=== PATIENT | female | born 1960 | race Caucasian/White ===

== ENCOUNTER 2018-11-16 09:33 | Emergency (ER) | payer OTHER ==
[2018-11-16 10:15] VITALS: BP 120/50
--- NOTE | 2018-11-16 10:34 | ED ---
Upper Extremity Pain - HPI Summary HPI Summary: 58 yr old female with pain in the left thumb. Onset of pain was several weeks ago. She has no idea the cause, and does not remember any specific accident or trauma. She has pain worse with motion of the left dorsal thumb worse when extending or abduction. The patient does not have bruising or swelling. Pain is moderate. - History of Current Complaint Chief Complaint: UCGeneralIllness Stated Complaint: LEFT THUMB PAIN Time Seen by Provider: 11/16/18 10:22 Hx Last Menstrual Period: hysterectomy - Allergies/Home Medications Allergies/Adverse Reactions: Allergies Allergy/AdvReac Type Severity Reaction Status Date / Time codeine Allergy Intermediate GI Upset Verified 11/16/18 10:16 Sulfa (Sulfonamide Allergy Intermediate Rash Verified 11/16/18 10:16 Antibiotics) Home Medications: Home Medications Atorvastatin* [Lipitor*] 20 mg PO 1700 11/16/18 [History Confirmed 11/16/18] PMH/Surg Hx/FS Hx/Imm Hx Endocrine/Hematology History: Denies: Hx Diabetes, Hx Thyroid Disease Cardiovascular History: Denies: Hx Hypertension, Hx Pacemaker/ICD Respiratory History: Denies: Hx Asthma, Hx Chronic Obstructive Pulmonary Disease (COPD) GI History: Denies: Hx Ulcer History: Denies: Hx Renal Disease Sensory History: Denies: Hx Hearing Aid Psychiatric History: Denies: Hx Panic Disorder - Cancer History Hx Chemotherapy: No Hx Radiation Therapy: No - Surgical History Surgery Procedure, Year, and Place: CSP FUSION 2000,LT SHOULDER,HYSTERECTOMY, SINUS,BREAST BIOPSY Xs - Lt BREAST Infectious Disease History: No Infectious Disease History: Denies: Hx Hepatitis, Hx Human Immunodeficiency Virus (HIV), Traveled Outside the [place] in Last 30 Days - Family History Known Family History: Positive: Cardiac Disease - Social History Alcohol Use: Weekly Substance Use Type: Reports: None Smoking Status (MU): Current Some Day Smoker Type: Cigarettes Amount Used/How Often: 1/2 -1 pack per week Length of Time of Smoking/Using Tobacco: 30 yrs Have You Smoked in the Last Year: Yes Review of Systems Constitutional: Negative Positive: Other - pain in the thumb All Other Systems Reviewed And Are Negative: Yes Physical Exam Triage Information Reviewed: Yes Vital Signs On Initial Exam: Initial Vitals Temp Pulse Resp BP Pulse Ox 98.0 F 61 16 120/50 100 11/16/18 10:12 11/16/18 10:12 11/16/18 10:12 11/16/18 10:12 11/16/18 10:12 Vital Signs Reviewed: Yes Appearance: Positive: Well-Appearing, No Pain Distress Skin: Positive: Warm, Skin Color Reflects Adequate Perfusion Head/Face: Positive: Normal Head/Face Inspection Eyes: Positive: EOMI ENT: Positive: Pharynx normal Neck: Positive: Nontender Respiratory/Lung Sounds: Positive: Other - normal effort Cardiovascular: Positive: Pulses are Symmetrical in both Upper and Lower Extremities Abdomen Description: Negative: Distended Musculoskeletal: Positive: Other - tender over the dorsal left thumb. No swelling, no bruise, no sts, no redness. Neurological: Positive: Sensory/Motor Intact, Alert, Oriented to Person Place, Time, CN Intact II-III Psychiatric: Positive: Normal Diagnostics - Vital Signs Vital Signs Temp Pulse Resp BP Pulse Ox 11/16/18 10:12 98.0 F 61 16 120/50 100 - Laboratory Lab Statement: Any lab studies that have been ordered have been reviewed, and results considered in the medical decision making process. Course/Dx - Course Course Of Treatment: 58 yr old female with no fx on xray. arthritis. FU with Ortho. - Diagnoses Provider Diagnoses: Thumb tendonitis, Arthritis Discharge - Sign-Out/Discharge Documenting (check all that apply): Patient Departure All imaging exams completed and their final reports reviewed: Yes - Discharge Plan Condition: Good Disposition: HOME Patient Education Materials: Tendinitis (ED), Arthritis (ED) Referrals: Patricia Alonso MD [Primary Care Provider] - 2 Days Wm Castellanos MD [Medical Doctor] - 2 Days - Billing Disposition and Condition Condition: GOOD Disposition: Home
== END 2018-11-16 11:21 | disposition home or self-care (01) ==
LOC: UCCORT 09:33
DX: M13.842 Other specified arthritis, left hand (principal); M77.9 Enthesopathy, unspecified; F17.210 Nicotine dependence, cigarettes, uncomplicated; Z88.5 Allergy status to narcotic agent; Z88.2 Allergy status to sulfonamides
CPT/HCPCS: 99212; G0463

== ENCOUNTER 2019-01-22 11:21 | Day surgery (SDC) | payer OTHER ==
[~2019-01-22 11:21] MED LIST: Buffered Lidocaine 1% SYRIN* 1 ML/SYRINGE INTRADERM ONE; Dexamethasone IV* 4 MG/ML 1 ML (4 MG) IV SLOW PU ONE; DiMENhydriNATE IV* 50 MG/ML VIAL IV PUSH PRN; Famotidine IV* 10 MG/ML 2 ML (20 mg) IV ONE; HYDROcodone/ACETAMIN 5-325 MG* 1 TAB PO PRN; Lactated Ringers 1000 ML Bag* 1,000 ML IV SCH; Naloxone* 0.4 MG/ML 1 ML VIAL IV PRN; oxyCODONE/Acetamin 5/325 MG* TAB PO PRN
[2019-01-22] MEDS ORDERED: ceFAZolin 2 GM in NS PREMIX(*) 2 GM/100 ML BAG IVPB ONE (11:38)
[2019-01-22] MEDS ORDERED: Famotidine IV* 10 MG/ML 2 ML (20 mg) ONE (11:38)
[2019-01-22] MEDS ORDERED: Buffered Lidocaine 1% SYRIN* 1 ML/SYRINGE INTRADERM ONE (11:38)
[2019-01-22] MEDS ORDERED: Dexamethasone IV* 4 MG/ML 1 ML (4 MG) ONE (11:38)
[2019-01-22] MEDS ORDERED: Midazolam* 1 MG/ML 2 ML VIAL (2 MG) ONE (11:42)
[2019-01-22] MEDS ORDERED: fentaNYL* 50 MCG/ML 2 ML VIAL (100 MCG VIAL) ONE ×2 (11:42→15:24)
[2019-01-22] MEDS ORDERED: Lidocaine 2% PF * 5 ML VIAL ONE (11:42)
[2019-01-22] MEDS ORDERED: Propofol* 10 MG/ML 20 ML BTL ONE (11:42)
[2019-01-22] MEDS ORDERED: Ketorolac INJ* 30 MG/ML 1 ML VIAL ONE (13:03)
[2019-01-22] MEDS ORDERED: Bupivacaine 0.25% SDV PF* 10 ML VIAL INJ ONE (13:05)
[2019-01-22] MEDS ORDERED: Ondansetron INJ* 2 MG/ML VIAL ONE (14:12)
[2019-01-22] MEDS ORDERED: PROCHLORPERAZINE INJ 5 MG/ML 2 ML VIAL ONE (14:27)
[2019-01-22] MEDS ORDERED: oxyCODONE/Acetamin 5/325 MG* TAB ONE (15:24)
[2019-01-22] MEDS: fentaNYL* 50 MCG/ML 2 ML VIAL (100 MCG VIAL) IV PRN ×2 (15:25→15:30)
[2019-01-22 16:34] VITALS: BP 125/80
--- NOTE | 2019-01-22 21:45 | OP ---
DATE OF OPERATION: 01/22/19 - [facility] DATE OF : 58 SURGEON: Lionel Werner MD LEGAL RECORDS MANAGER: NATY Weeks ANESTHESIOLOGIST: Dr. Davis. ANESTHESIA: General. PRE-OP DIAGNOSES: 1. 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 2. Left, stage III basal joint arthritis. POST-OP DIAGNOSES: 1. 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 2. Left, stage III basal joint arthritis. OPERATIVE PROCEDURE: 1. Left wrist de Quervain's release with tenosynovectomy and release of first and second dorsal compartment tendon sheaths. 2. Left thumb carpometacarpal arthroplasty with Arthrex mini tight rope suspension plasty and FCR tendon interposition. INDICATIONS: Teresa has the aforementioned condition. The dorsoradial wrist pain is quite severe. The basal joint pain has been building over years. We talked about her options and she wanted to address both problems. She understands the risks and benefits and wants to proceed. ESTIMATED BLOOD LOSS: 2 mL. COMPLICATIONS: None. FINDINGS: See above and below. DESCRIPTION OF PROCEDURE: Teresa was seen in the preoperative holding area. The correct site, side, and procedure were identified. We came back to the operating room and the arm was prepped and draped in the usual fashion and a time-out was performed. The arm was exsanguinated with the Esmarch and the tourniquet was inflated to 250 mmHg. I then first made a transverse incision a centimeter proximal to the radial styloid. Full-thickness flaps were bluntly raised off the tendon sheath. The sensory nerve was protected. I released the first dorsal compartment tendon sheath along its dorsal margin. There was an accessory compartment and this was released as well. Proximally, I came up and dissected out towards the intersection of the first and second dorsal compartment tendons. I made a second longitudinal incision over the intersection of the first and second dorsal compartment tendons as there was quite a bit of crepitus there and she was very tender there preoperatively. I dissected down around and noted abundant inflammatory tissue. All of that was excised and release of the second dorsal compartment down to the extensor retinaculum and releasing just the first part of the extensor retinaculum was performed. A full tenosynovectomy of the second dorsal compartment tendons was performed. This resolved all of the crepitus. I then made a longitudinal 2 cm incision over the dorsoradial thumb base and dissection was carried down. The radial artery was identified and protected throughout the case. It was mobilized and retracted with a Ragnell retractor. I then reached subperiosteal and capsular flaps to expose the entirety of the trapezium. A threaded K-wire was introduced into the trapezium and then the McGlamry elevator was used to excise the trapezium in 1 piece. This was handed off as a specimen. After I confirmed removal of all the synovitis and any loose bodies with the rongeur, I went ahead and placed the K-wire across the base of the thumb metacarpal, actually not the second metacarpal base. A 2-0 FiberWire suture was then pulled down back through the drilled tunnel using the nitinol wire. The button on the end of the mini tightrope was then flushed on to the surface of the second metacarpal cortex. Over the base of the first metacarpal, I placed one end of the FiberWire suture through either side of the button and then set the appropriate tension as the button was tied down. I then brought in my mini C-arm fluoroscopy and confirmed a very nice level of the first metacarpal with relation to the second metacarpal. I confirmed full palmar and radial abduction and there was no subsidence and no impingement. Lastly, I went ahead and made a transverse incision in the proximal forearm and released the FCR tendon. This was then rolled up and placed as an interposition at the site of the trapeziectomy between the base of the first metacarpal and the distal pole of the scaphoid. The tendon roll was secured with a 4-0 Ethibond suture. I then closed the capsule with a 3-0 Vicryl suture. The wounds were all then irrigated out and the skin was closed with 4-0 nylon suture. This included the small longitudinal incision over the base of the second metacarpal, where I had dissected down to place my Endobutton as well as the thumb base wound and the forearm wound. 0.25% Marcaine was infiltrated all around the operative areas. A short-arm thumb spica splint with the IP joint free was placed. Tourniquet was deflated. The hand pinked up immediately. She was taken to the recovery room in stable condition. [id number]/[facility] #: [id number] SOFIA
== END 2019-01-22 16:26 | disposition home or self-care (01) ==
LOC: OR 11:21
PROVIDERS: ATTEND Orthopaedic Surgery Hand Surgery
DX: M18.12 Unilateral primary osteoarthritis of first carpometacarpal joint, left hand (principal); M65.4 Radial styloid tenosynovitis [de Quervain]; E78.5 Hyperlipidemia, unspecified; M19.90 Unspecified osteoarthritis, unspecified site
CPT/HCPCS: 76000; 88304; 88311; A9270-GY; C1713; C1776; J0690; J0780; J1100; J1885; J2250; J2405; J2704; J3010; J3490

== ENCOUNTER → 2019-06-28 05:48 | Day surgery (SDC) | payer OTHER ==
[~2019-06-28 05:48] MED LIST changes: +Bupivacaine 0.5%* 50 ML MDV VIAL ONE; -Dexamethasone IV* 4 MG/ML 1 ML (4 MG) IV SLOW PU ONE; -DiMENhydriNATE IV* 50 MG/ML VIAL IV PUSH PRN; -Famotidine IV* 10 MG/ML 2 ML (20 mg) IV ONE; -HYDROcodone/ACETAMIN 5-325 MG* 1 TAB PO PRN; +Lidocaine 2% PF* 10 ML AMP ONE; +Midazolam* 1 MG/ML 2 ML VIAL (2 MG) ONE; +Midazolam* 1 MG/ML 5 ML VIAL (5 MG) ONE; +Sodium Citrate/Citric Acid* 15 ML UDC ONE; +Sodium Citrate/Citric Acid* 15 ML UDC PO ONE; +ceFAZolin 2 GM in NS PREMIX(*) 2 GM/100 ML BAG IVPB ONE; +fentaNYL* 50 MCG/ML 2 ML VIAL (100 MCG VIAL) ONE; -oxyCODONE/Acetamin 5/325 MG* TAB PO PRN
--- NOTE | 2019-06-28 08:20 | OP ---
Operative Report - Blank - Operative Report Date of Operation: 06/28/19 Note: PATIENT: Teresa Georges DATE OF : 1960 DATE OF SURGERY: 06/28/2019 SURGEON: Geronimo Desai MD IT SERVICE MANAGER: NATY Witt, whos assistance was necessary for positioning, retraction, help with instrumentation, and closure. ANESTHESIOLOGIST: Dr. Andrews PREOPERATIVE DIAGNOSIS: Left foot hallux rigidus POSTOPERATIVE DIAGNOSIS: Left foot hallux rigidus OPERATION: Left foot first metatarsophalangeal joint cheilectomy ANESTHESIA: MAC IMPLANTS: none TOURNIQUET TIME: Less than 1 hour with an ankle Esmarch tourniquet SPECIMENS: None ESTIMATED BLOOD LOSS: Minimal COMPLICATIONS: none STATUS: Stable from the operating room to the recovery room and then home. INDICATIONS FOR PROCEDURE: Gayle has had persistent, limiting pain due to hallux rigidus. Both operative and non-operative treatment alternatives were reviewed. Further, the nature and risks of surgery were reviewed in careful detail, in the office as well as the pre-operative holding area. Our discussions regarding the risks of surgery included, but were not limited to, infection, wound problems, nerve injury, neuroma, RSD, persistent symptoms, blood clot, fracture, need for further surgery, failure of the surgery, and even the remote chance of catastrophic complication. DESCRIPTION OF PROCEDURE: The patient was seen in the preoperative holding unit and informed written consent was obtained. The appropriate extremity was marked. The patient was then brought to the operating room and carefully positioned on the operating room table. Anesthesia was induced. All bony prominences were padded with great care. A chlorhexidine based pre-scrub was performed followed by a chloraprep prep and drape in standard sterile fashion. A surgical safety pause was then conducted in which we confirmed the appropriate patient, extremity, planned procedure, availability of equipment, indication and administration of prophylactic antibiotics, and DVT prophylaxis in the form of a compression boot on the non-surgical extremity. I began with an Esmarch exsanguination of the limb and placement of an ankle Esmarch tourniquet. I then made an approximately 4 cm incision overlying the first metatarsophalangeal joint dorsally. We mobilized the extensor hallucis longus tendon laterally and then came sharply through the dorsal capsule in line with the skin incision. We then exposed the metatarsal head, with care taken to protect the collateral ligaments. Inflamed synovium was excised with a 15 blade scalpel. The dorsal aspect of the 1st metatarsal head was devoid of cartilage. I utilized an osteotome to remove approximately 20-25% of the dorsal first metatarsal head and in line with the first metatarsal shaft, removing the dorsal spur. This was contoured at the medial and lateral aspects of the osteotomy in order to prevent any sharp bony prominences. I then excised the dorsal aspect of the proximal phalanx at the joint with a rongeur. There were no spurs left or inflamed invaginating synovium. We were able to range the joint to 70 degrees of dorsiflexion without any limitation or crepitus. The wounds were copiously irrigated and meticulously closed in layers utilizing 3-0 Monocryl and 3-0 nylon. A sterile dressing was then applied. The patient was then awakened from anesthesia and transferred to the recovery room in stable condition. There were no complications. All needle and sponge counts were correct at the end of the case. ATTESTATION: I attest I was present and scrubbed and performed the critical portions of the procedure myself. POSTOPERATIVE PLAN: The patient will remain heel weightbearing for anticipated duration of 2 weeks. Followup will be in 2 weeks for likely suture removal and Steri-Strip application.
[2019-06-28 09:37] VITALS: BP 131/72
== END | disposition home or self-care (01) ==
LOC: OR 05:48
PROVIDERS: ATTEND Orthopaedic Surgery
DX: M20.22 Hallux rigidus, left foot (principal); E78.00 Pure hypercholesterolemia, unspecified; M19.90 Unspecified osteoarthritis, unspecified site; Z87.891 Personal history of nicotine dependence
CPT/HCPCS: 76000; A9270-GY; J0690; J2001; J2250; J3010; J3490